=== PATIENT | male | born 1935 | race Caucasian/White ===

== ENCOUNTER 2021-11-14 04:25 | Inpatient (IN) | payer MEDICARE, OTHER ==
[2021-11-14 05:02] LABS: #Basophils 0.1 thou/uL (0.0-0.2); #Eosinphils 0.2 thou/uL (0.0-0.7); #Monocytes 0.9 thou/uL (0.11-0.59); #Neutrophils 6.6 thou/uL (1.40-6.50); %Basophils 0.7 % (0.0-1.0); %Eosinophils 2.6 % (0.0-10.0); %Monocytes 9.1 % (0.0-10.0); %Neutrophils 67.7 % (42.0-75.0); Hemoglobin 11.6 g/dL (14.0-18.0); Mean Corpuscular HGB CONC 33.5 g/dL (32.0-36.0); Mean Corpuscular Hemoglobin 34.4 pg (27.0-31.0); Mean Platelet Volume 7.8 fL (7.4-10.4); Platelet Count 223 thou/uL (130-400); RBC Distribution Width 11.3 % (11.5-14.5); Red Blood Cell (RBC) Count 3.38 mill/uL (4.70-6.10); White Blood Cell (WBC) Count 9.7 thou/uL (4.8-10.8)
[2021-11-14] MEDS ORDERED: Clindamycin/D5W 600 mg/50 ml Premix Bag ONE (06:50)
[2021-11-14] MEDS ORDERED: Silver Nitrate Application 1 EACH ONE (07:05)
[2021-11-14 07:22] LABS: ALT (SGPT) 15 U/L (8-55); AST (SGOT) 22 U/L (5-34); Albumin 3.9 g/dL (3.4-4.8); Alkaline Phosphatase 51 U/L (40-110); Anion Gap 13 mmol/L (10-20); BUN (Urea Nitrogen) 21 mg/dL (8.4-25.7); Bilirubin, Total 0.7 mg/dL (0.2-1.2); Calc. Creatinine Clearance 0 mL/min (70-130); Calcium 8.7 mg/dL (7.8-10.44); Carbon Dioxide 25 mmol/L (23-31); Chloride 103 mmol/L (98-107); Globulin 3.2 g/dL (2.4-3.5); Glucose 132 mg/dL (83-110); Potassium 3.3 mmol/L (3.5-5.1); Protein, Total 7.1 g/dL (5.8-8.1); Sodium 138 mmol/L (136-145)
[2021-11-14] MEDS ORDERED: Insulin Regular 300 UNITS/3 ML VIAL SC PRN ×2 (08:30)
[2021-11-14] MEDS ORDERED: Dextrose 50% Abboject 50 ML SYRINGE SLOW IVP PRN (08:30)
[2021-11-14] MEDS ORDERED: HYDROcodone/Acetaminophen 5/325 mg Tablet PO PRN (08:30)
[2021-11-14] MEDS ORDERED: Ondansetron ODT 4 MG TAB PO PRN (08:30)
[2021-11-14] MEDS ORDERED: Dextrose 5% in Water 1,000 ML IV PRN (08:30)
[2021-11-14] MEDS ORDERED: Iopamidol 370 76% 100 ML VIAL ONE (08:41)
[2021-11-14] MEDS ORDERED: VANC/ABX IVPB PRN (09:01)
[2021-11-14] MEDS ORDERED: cefTRIAXone\\ROCEPHIN 1 GM in Sodium Chloride 0.9% 100 ML IVPB SCH (09:15)
[2021-11-14] MEDS ORDERED: Potassium Chloride 20 MEQ TAB PO SCH (09:45)
[2021-11-14 10:11] VITALS: BMI 25.2
[2021-11-14] MEDS: Vancomycin 1.5 GRAM/300 ML BAG 1.5 GM in Premix Bag 1 BAG IVPB SCH (13:06)
[2021-11-14] MEDS: Acetaminophen 325 MG TAB PO PRN (13:07)
[2021-11-14] MEDS ORDERED: Menthol/Camphor Lotion 222 ml Bottle TOP PRN (15:14)
[2021-11-14] MEDS ORDERED: Methyl Salicylate/Menthol 85 GM TUBE TOP PRN (16:57)
[2021-11-15 05:38] LABS: #Basophils 0.1 thou/uL (0.0-0.2); #Eosinphils 0.2 thou/uL (0.0-0.7); #Lymphocytes 1.5 thou/uL (1.20-3.40); #Monocytes 0.6 thou/uL (0.11-0.59); #Neutrophils 5.8 thou/uL (1.40-6.50); %Basophils 0.7 % (0.0-1.0); %Eosinophils 2.8 % (0.0-10.0); %Lymphocytes 18.1 % (21.0-51.0); %Monocytes 6.8 % (0.0-10.0); %Neutrophils 71.6 % (42.0-75.0); Hemoglobin 10.5 g/dL (14.0-18.0); Mean Corpuscular HGB CONC 33.9 g/dL (32.0-36.0); Mean Corpuscular Hemoglobin 34.9 pg (27.0-31.0); Mean Platelet Volume 8.1 fL (7.4-10.4); Platelet Count 196 thou/uL (130-400); RBC Distribution Width 11.3 % (11.5-14.5); Red Blood Cell (RBC) Count 3.01 mill/uL (4.70-6.10); White Blood Cell (WBC) Count 8.1 thou/uL (4.8-10.8)
[2021-11-15 06:05] LABS: Anion Gap 11 mmol/L (10-20); BUN (Urea Nitrogen) 17 mg/dL (8.4-25.7); Calc. Creatinine Clearance 98 mL/min (70-130); Calcium 8.3 mg/dL (7.8-10.44); Carbon Dioxide 23 mmol/L (23-31); Chloride 108 mmol/L (98-107); Glucose 147 mg/dL (83-110); Potassium 3.5 mmol/L (3.5-5.1); Sodium 138 mmol/L (136-145)
[2021-11-15] MEDS ORDERED: Cepastat Lozenges 1 LOZ PO PRN (08:25)
[2021-11-15] MEDS ORDERED: GUAIFENESIN SF SOLN 200 MG/10 ML UDCUP PO PRN (08:25)
[2021-11-15] MEDS ORDERED: hydrALAZINE 20 MG/ML VIAL SLOW IVP PRN (08:25)
[2021-11-15] MEDS ORDERED: Moisturizing Cream (Eucerin) 113 GM JAR TOP PRN (08:25)
[2021-11-15] MEDS ORDERED: Ondansetron PF 4 MG/2 ML Vial IVP PRN (08:25)
[2021-11-15] MEDS ORDERED: Senokot S 8.6-50 MG TAB PO PRN (08:25)
[2021-11-15] MEDS ORDERED: Loperamide HCl 2 MG CAP PO PRN (08:25)
[2021-11-15] MEDS ORDERED: Calcium Carbonate 500 MG ChewTAB PO PRN (08:25)
[2021-11-15] MEDS ORDERED: Sodium Chloride 0.65% Nasal 44 ML BOT EA NARE PRN (08:25)
[2021-11-15] MEDS ORDERED: Artificial Tear Sol 15 ML BOT EA EYE PRN (08:25)
[2021-11-15] MEDS ORDERED: ALPRAZolam 0.25 MG TAB PO PRN (11:02)
[2021-11-15] MEDS: Vancomycin 1.5 GRAM/300 ML BAG 1.5 GM in Premix Bag 1 BAG IVPB SCH (12:14)
[2021-11-15] MEDS: Folic Acid 1 MG TAB PO SCH (12:15)
[2021-11-15] MEDS: Cyanocobalamin (Vitamin B-12) 1,000 MCG TAB PO SCH (12:15)
[2021-11-15] MEDS: Acetaminophen 325 MG TAB PO PRN (15:05)
[2021-11-15] MEDS: Glimepiride 1 MG TAB PO SCH (18:03)
[2021-11-15] MEDS: diphenhydrAMINE 25 MG CAP PO PRN (20:21)
[2021-11-16] MEDS: Cyanocobalamin (Vitamin B-12) 1,000 MCG TAB PO SCH (08:05)
[2021-11-16] MEDS: Folic Acid 1 MG TAB PO SCH (08:05)
[2021-11-16] MEDS: diphenhydrAMINE 25 MG CAP PO PRN ×2 (08:05→20:30)
[2021-11-16] MEDS: Glimepiride 1 MG TAB PO SCH ×2 (08:05→17:36)
[2021-11-16] MEDS: Acetaminophen 325 MG TAB PO PRN (10:42)
[2021-11-16 11:35] LABS: Vancomycin, Trough 6.8 ug/mL
[2021-11-16] MEDS: Vancomycin 1.5 GRAM/300 ML BAG 1.5 GM in Premix Bag 1 BAG IVPB SCH (14:18)
[2021-11-16] MEDS: VANCOMYCIN 1.25 GM/250 ML BAG 1.25 GM in Premix Bag 1 BAG IVPB SCH (14:25)
[2021-11-16] MEDS ORDERED: Nitroglycerin 0.4 MG TAB (25 Tab Bottle) ONE (20:50)
[2021-11-16] MEDS ORDERED: Nitroglycerin 0.4 MG TAB (25 Tab Bottle) SL PRN (20:53)
[2021-11-16 21:44] LABS: Troponin I 0.016 ng/mL (< 0.028)
[2021-11-17] MEDS: VANCOMYCIN 1.25 GM/250 ML BAG 1.25 GM in Premix Bag 1 BAG IVPB SCH (03:08)
[2021-11-17] MEDS: Acetaminophen 325 MG TAB PO PRN ×3 (03:09→14:03)
[2021-11-17 06:07] LABS: #Eosinphils 0.4 thou/uL (0.0-0.7); #Lymphocytes 1.9 thou/uL (1.20-3.40); #Monocytes 0.7 thou/uL (0.11-0.59); #Neutrophils 6.9 thou/uL (1.40-6.50); %Basophils 0.4 % (0.0-1.0); %Eosinophils 4.4 % (0.0-10.0); %Lymphocytes 18.8 % (21.0-51.0); %Neutrophils 69.3 % (42.0-75.0); Hemoglobin 10.4 g/dL (14.0-18.0); Mean Corpuscular Hemoglobin 34.6 pg (27.0-31.0); Mean Platelet Volume 7.9 fL (7.4-10.4); Platelet Count 236 thou/uL (130-400); RBC Distribution Width 11.3 % (11.5-14.5); Red Blood Cell (RBC) Count 3.02 mill/uL (4.70-6.10)
[2021-11-17] MEDS: diphenhydrAMINE 25 MG CAP PO PRN (06:20)
[2021-11-17 06:34] LABS: ALT (SGPT) 22 U/L (8-55); AST (SGOT) 25 U/L (5-34); Albumin 3.8 g/dL (3.4-4.8); Alkaline Phosphatase 50 U/L (40-110); Anion Gap 9 mmol/L (10-20); BUN (Urea Nitrogen) 10 mg/dL (8.4-25.7); Bilirubin, Total 0.4 mg/dL (0.2-1.2); Calc. Creatinine Clearance 89 mL/min (70-130); Calcium 8.7 mg/dL (7.8-10.44); Carbon Dioxide 25 mmol/L (23-31); Chloride 105 mmol/L (98-107); Globulin 3.2 g/dL (2.4-3.5); Glucose 140 mg/dL (83-110); Magnesium 1.9 mg/dL (1.6-2.6); Potassium 3.4 mmol/L (3.5-5.1); Sodium 136 mmol/L (136-145)
[2021-11-17] MEDS: Cyanocobalamin (Vitamin B-12) 1,000 MCG TAB PO SCH (08:52)
[2021-11-17] MEDS: Glimepiride 1 MG TAB PO SCH (08:52)
[2021-11-17] MEDS: Folic Acid 1 MG TAB PO SCH (08:52)
[2021-11-17 08:53] VITALS: BP 143/83; TEMP 97.4
[2021-11-17] MEDS ORDERED: Potassium Chloride 20 MEQ TAB PO SCH (09:30)
== END 2021-11-17 15:43 | disposition home or self-care (01) | DRG 603 ==
LOC: ERS 04:25 → MSONC 07:42
PROVIDERS: ADMIT Internal Medicine; ATTEND Internal Medicine
DX: L03.113 Cellulitis of right upper limb (principal); Z20.822 Contact with and (suspected) exposure to COVID-19; I10 Essential (primary) hypertension; E78.5 Hyperlipidemia, unspecified; I25.10 Atherosclerotic heart disease of native coronary artery without angina pectoris; E87.6 Hypokalemia; D53.9 Nutritional anemia, unspecified; F41.1 Generalized anxiety disorder; S01.301A Unspecified open wound of right ear, initial encounter; Z88.0 Allergy status to penicillin; Z79.84 Long term (current) use of oral hypoglycemic drugs; Z79.899 Other long term (current) drug therapy; Z79.52 Long term (current) use of systemic steroids
CPT/HCPCS: 36415; 36416; 70450; 80048; 80053; 80202; 82607; 82746; 83605; 83735; 84484; 85025; 87040; 93005; 93010; 96365; J1815; J3370; J3490; Q9967; U0003; U0005

== ENCOUNTER 2021-11-20 01:29 | Inpatient (IN) | payer MEDICARE ==
[2021-11-20 02:24] LABS: #Lymphocytes 1.3 thou/uL (1.20-3.40); #Monocytes 0.5 thou/uL (0.11-0.59); #Neutrophils 6.2 thou/uL (1.40-6.50); %Basophils 0.5 % (0.0-1.0); %Eosinophils 0.5 % (0.0-10.0); %Lymphocytes 15.8 % (21.0-51.0); %Monocytes 5.7 % (0.0-10.0); %Neutrophils 77.6 % (42.0-75.0); Mean Corpuscular HGB CONC 34.2 g/dL (32.0-36.0); Mean Corpuscular Hemoglobin 35.1 pg (27.0-31.0); Mean Platelet Volume 7.8 fL (7.4-10.4); Platelet Count 281 thou/uL (130-400); RBC Distribution Width 11.8 % (11.5-14.5); Red Blood Cell (RBC) Count 2.86 mill/uL (4.70-6.10)
[2021-11-20] MEDS ORDERED: Morphine 2 MG/ML VIAL ONE ×2 (02:35→04:13)
[2021-11-20 02:46] LABS: ALT (SGPT) 20 U/L (8-55); AST (SGOT) 25 U/L (5-34); Albumin 4.1 g/dL (3.4-4.8); Alkaline Phosphatase 59 U/L (40-110); Anion Gap 16 mmol/L (10-20); BUN (Urea Nitrogen) 14 mg/dL (8.4-25.7); Bilirubin, Total 0.3 mg/dL (0.2-1.2); Calc. Creatinine Clearance 0 mL/min (70-130); Calcium 9.1 mg/dL (7.8-10.44); Carbon Dioxide 20 mmol/L (23-31); Chloride 103 mmol/L (98-107); Globulin 3.1 g/dL (2.4-3.5); Glucose 229 mg/dL (83-110); Potassium 4.2 mmol/L (3.5-5.1); Protein, Total 7.2 g/dL (5.8-8.1); Sodium 135 mmol/L (136-145)
[2021-11-20 03:37] LABS: CKMB 8.1 ng/mL (0-6.6)
[2021-11-20] MEDS ORDERED: Enoxaparin Sodium 30 MG/0.3 ML SYRINGE ONE (04:13)
[2021-11-20] MEDS ORDERED: Enoxaparin Sodium 60 MG/0.6 ML SYRINGE ONE (04:13)
[2021-11-20] MEDS ORDERED: Aspirin Chewable 81 MG TAB ONE ×2 (04:37→04:38)
[2021-11-20 06:18] VITALS: BMI 26.6
[2021-11-20] MEDS ORDERED: Ondansetron ODT 4 MG TAB PO PRN (09:20)
[2021-11-20] MEDS ORDERED: Ondansetron PF 4 MG/2 ML Vial IVP PRN (09:20)
[2021-11-20] MEDS ORDERED: Acetaminophen 650 MG Suppository PR PRN (09:20)
[2021-11-20] MEDS ORDERED: Nitroglycerin 0.4 MG TAB (25 Tab Bottle) SL PRN ×2 (09:22→13:08)
[2021-11-20] MEDS ORDERED: Morphine 2 MG/ML VIAL SLOW IVP PRN (09:22)
[2021-11-20] MEDS ORDERED: Metoprolol Tartrate 5 MG/5 ML VIAL IVP PRN (09:25)
[2021-11-20] MEDS ORDERED: Dextrose 50% Abboject 50 ML SYRINGE SLOW IVP PRN (09:27)
[2021-11-20] MEDS ORDERED: HumaLOG 300 UNITS/3 ML VIAL SC PRN (09:27)
[2021-11-20] MEDS ORDERED: Dextrose 5% in Water 1,000 ML IV PRN (09:27)
[2021-11-20] MEDS ORDERED: Electrolyte Replacement Protocol 1 EACH FS SCH (09:30)
[2021-11-20 09:39] LABS: Troponin I 11.611 ng/mL (< 0.028)
[2021-11-20] MEDS ORDERED: Iopamidol 370 76% 100 ML VIAL ONE (10:04)
[2021-11-20] MEDS ORDERED: Iopamidol 370 76% 50 ML VIAL FS ONE (10:04)
[2021-11-20 10:08] LABS: Magnesium 1.8 mg/dL (1.6-2.6)
[2021-11-20] MEDS ORDERED: Magnesium 2 GM/50 ML(in water) 2 GM in Premix Bag 1 BAG IVPB SCH (11:00)
[2021-11-20] MEDS ORDERED: Lidocaine 1% (PF) 30 ML VIAL ONE (11:30)
[2021-11-20 12:24] LABS: Troponin I 18.827 ng/mL (< 0.028)
[2021-11-20] MEDS ORDERED: Midazolam HCl 2 mg/2 ml Vial ONE (12:35)
[2021-11-20] MEDS ORDERED: Sodium Chloride 0.9% 200 ML IV PRN (13:08)
[2021-11-20] MEDS ORDERED: Acetaminophen/Codeine 30-300mg Tablet PO PRN ×2 (13:08)
[2021-11-20] MEDS: Nitroglycerin 2% Ointment 1 INCH/1 GM Packet TOP SCH ×2 (13:59→21:43)
[2021-11-20] MEDS: Sodium Chloride 0.9% 1,000 ML IV SCH ×2 (14:00→22:35)
[2021-11-20 14:09] LABS: Bilirubin Negative (Negative); Blood, Urine 3+ (Negative); Clarity Clear (Clear); Glucose, Urine (Dipstick) Normal (Negative); Ketone, Urine Negative (Negative); Leukocyte Negative Leu/uL (Negative); Nitrite Negative (Negative); Protein, Urine (Dipstick) Negative (Neg-Trace); Specific Gravity, Urine 1.028 (1.002-1.036); Squamous Epithelial 0-3 HPF (0-3); Urobilinogen Normal mg/dL (Less than 2)
[2021-11-20 14:20] LABS: Bacteria/HPF 1+ HPF (None Seen); RBC/HPF 21-50 HPF (0-3)
[2021-11-20 14:22] LABS: Urine Culture Reflex Yes Yes
[2021-11-20] MEDS ORDERED: Enoxaparin Sodium 80 MG/0.8 ML SYRINGE SC SCH (21:00)
[2021-11-20] MEDS ORDERED: ZYTIGA PO SCH (21:00)
[2021-11-20] MEDS: Atorvastatin Calcium 40 MG TAB PO SCH (21:43)
[2021-11-20] MEDS: Sulfameth/Trimethoprim SS 400-80MG TAB PO SCH (21:43)
[2021-11-20] MEDS: Enoxaparin Sodium 100 MG/ML SYRINGE SC SCH (21:43)
[2021-11-20] MEDS: predniSONE 5 MG TAB PO SCH (21:43)
[2021-11-20] MEDS: Acetaminophen 325 MG TAB PO PRN (21:48)
[2021-11-21] MEDS: Nitroglycerin 2% Ointment 1 INCH/1 GM Packet TOP SCH ×3 (05:42→21:29)
[2021-11-21] MEDS: Cyanocobalamin (Vitamin B-12) 1,000 MCG TAB PO SCH (08:38)
[2021-11-21] MEDS: Enoxaparin Sodium 100 MG/ML SYRINGE SC SCH ×2 (08:40→21:21)
[2021-11-21] MEDS: Folic Acid 1 MG TAB PO SCH (08:40)
[2021-11-21] MEDS: Aspirin Chewable 81 MG TAB PO SCH (08:40)
[2021-11-21] MEDS: Sulfameth/Trimethoprim SS 400-80MG TAB PO SCH ×2 (08:45→21:30)
[2021-11-21] MEDS: predniSONE 5 MG TAB PO SCH ×2 (08:45→21:31)
[2021-11-21] MEDS ORDERED: Clopidogrel Bisulfate 75 MG TAB PO SCH (10:15)
[2021-11-21] MEDS: Acetaminophen 325 MG TAB PO PRN (12:05)
[2021-11-21] MEDS: HumaLOG 300 UNITS/3 ML VIAL SC PRN (12:35)
[2021-11-21] MEDS: ZYTIGA PO SCH (21:29)
[2021-11-21] MEDS: Atorvastatin Calcium 40 MG TAB PO SCH (21:31)
[2021-11-22] MEDS: Nitroglycerin 2% Ointment 1 INCH/1 GM Packet TOP SCH ×2 (05:36→15:15)
[2021-11-22] MEDS: HumaLOG 300 UNITS/3 ML VIAL SC PRN (05:44)
[2021-11-22 06:00] LABS: #Eosinphils 0.1 thou/uL (0.0-0.7); #Monocytes 0.5 thou/uL (0.11-0.59); #Neutrophils 4.3 thou/uL (1.40-6.50); %Basophils 0.8 % (0.0-1.0); %Eosinophils 1.3 % (0.0-10.0); %Lymphocytes 17.1 % (21.0-51.0); %Monocytes 7.6 % (0.0-10.0); %Neutrophils 73.3 % (42.0-75.0); Hemoglobin 9.5 g/dL (14.0-18.0); Mean Corpuscular HGB CONC 34.7 g/dL (32.0-36.0); Mean Corpuscular Hemoglobin 35.2 pg (27.0-31.0); Mean Platelet Volume 7.8 fL (7.4-10.4); Platelet Count 278 thou/uL (130-400); RBC Distribution Width 11.8 % (11.5-14.5); Red Blood Cell (RBC) Count 2.68 mill/uL (4.70-6.10); White Blood Cell (WBC) Count 5.9 thou/uL (4.8-10.8)
[2021-11-22 06:21] LABS: Anion Gap 12 mmol/L (10-20); BUN (Urea Nitrogen) 6 mg/dL (8.4-25.7); Calc. Creatinine Clearance 94 mL/min (70-130); Calcium 8.3 mg/dL (7.8-10.44); Carbon Dioxide 23 mmol/L (23-31); Chloride 106 mmol/L (98-107); Glucose 162 mg/dL (83-110); Potassium 3.7 mmol/L (3.5-5.1); Sodium 137 mmol/L (136-145)
[2021-11-22] MEDS: Acetaminophen 325 MG TAB PO PRN (08:19)
[2021-11-22] MEDS: Aspirin Chewable 81 MG TAB PO SCH (08:20)
[2021-11-22] MEDS: Cyanocobalamin (Vitamin B-12) 1,000 MCG TAB PO SCH (08:21)
[2021-11-22] MEDS: Folic Acid 1 MG TAB PO SCH (08:23)
[2021-11-22] MEDS: Sulfameth/Trimethoprim SS 400-80MG TAB PO SCH ×2 (08:23→21:11)
[2021-11-22] MEDS: Clopidogrel Bisulfate 75 MG TAB PO SCH (08:23)
[2021-11-22] MEDS: ZYTIGA PO SCH ×2 (08:24→21:11)
[2021-11-22] MEDS: predniSONE 5 MG TAB PO SCH ×2 (09:08→21:11)
[2021-11-22] MEDS: Fluticasone Propionate Nasal Spray 16 gm Bottle NASAL SCH (09:08)
[2021-11-22] MEDS: Enoxaparin Sodium 100 MG/ML SYRINGE SC SCH (11:21)
[2021-11-22] MEDS ORDERED: Tamsulosin HCl 0.4 MG CAP PO SCH (21:00)
[2021-11-22] MEDS: Atorvastatin Calcium 40 MG TAB PO SCH ×2 (21:11→21:13)
[2021-11-23 05:48] LABS: #Basophils 0.1 thou/uL (0.0-0.2); #Eosinphils 0.1 thou/uL (0.0-0.7); #Lymphocytes 1.4 thou/uL (1.20-3.40); #Monocytes 0.7 thou/uL (0.11-0.59); %Basophils 0.7 % (0.0-1.0); %Eosinophils 0.8 % (0.0-10.0); %Monocytes 9.4 % (0.0-10.0); %Neutrophils 70.1 % (42.0-75.0); Hemoglobin 9.5 g/dL (14.0-18.0); Mean Corpuscular HGB CONC 33.3 g/dL (32.0-36.0); Mean Corpuscular Hemoglobin 34.1 pg (27.0-31.0); Mean Platelet Volume 7.8 fL (7.4-10.4); Platelet Count 293 thou/uL (130-400); White Blood Cell (WBC) Count 7.1 thou/uL (4.8-10.8)
[2021-11-23 06:11] LABS: Anion Gap 12 mmol/L (10-20); BUN (Urea Nitrogen) 8 mg/dL (8.4-25.7); Calc. Creatinine Clearance 94 mL/min (70-130); Calcium 8.5 mg/dL (7.8-10.44); Carbon Dioxide 24 mmol/L (23-31); Chloride 105 mmol/L (98-107); Glucose 165 mg/dL (83-110); Potassium 3.7 mmol/L (3.5-5.1); Sodium 137 mmol/L (136-145)
[2021-11-23] MEDS: HumaLOG 300 UNITS/3 ML VIAL SC PRN ×2 (06:28→11:35)
[2021-11-23] MEDS: ZYTIGA PO SCH (09:03)
[2021-11-23] MEDS: Cyanocobalamin (Vitamin B-12) 1,000 MCG TAB PO SCH (09:03)
[2021-11-23] MEDS: Fluticasone Propionate Nasal Spray 16 gm Bottle NASAL SCH (09:04)
[2021-11-23] MEDS: Folic Acid 1 MG TAB PO SCH (09:04)
[2021-11-23] MEDS: Clopidogrel Bisulfate 75 MG TAB PO SCH (09:05)
[2021-11-23] MEDS: Aspirin Chewable 81 MG TAB PO SCH (09:05)
[2021-11-23] MEDS: predniSONE 5 MG TAB PO SCH (11:35)
[2021-11-23 11:57] VITALS: TEMP 97.5
[2021-11-23 16:01] VITALS: BP 105/60
== END 2021-11-23 18:49 | disposition home health service (06) | DRG 281 ==
LOC: ERS 01:29 → NEURO 04:11 → OBSVTOIN 10:21
PROVIDERS: ADMIT Internal Medicine; ATTEND Internal Medicine
DX: I21.4 Non-ST elevation (NSTEMI) myocardial infarction (principal); C79.51 Secondary malignant neoplasm of bone; L03.113 Cellulitis of right upper limb; N39.0 Urinary tract infection, site not specified; Z20.822 Contact with and (suspected) exposure to COVID-19; R29.6 Repeated falls; I10 Essential (primary) hypertension; C61 Malignant neoplasm of prostate; I25.110 Atherosclerotic heart disease of native coronary artery with unstable angina pectoris; Z79.899 Other long term (current) drug therapy; Z88.0 Allergy status to penicillin
CPT/HCPCS: 36415; 36416; 51702; 71045; 80048; 80053; 81001; 82553; 83735; 84484; 85025; 87086; 93005; 93010; 93306; 93459; 93567; 94760; 96372; 96374; 96376; 99152; 99153; G0378; J1650; J1815; J2001; J2250; J2270; J3475; J7050; J7512; Q9967; U0003; U0005

== ENCOUNTER 2022-01-10 18:59 | Inpatient (IN) | payer MEDICARE ==
[~2022-01-10 18:59] MED LIST: Iopamidol-370 76% 500 ML 1 ML ONE
[2022-01-10 19:56] LABS: ALT (SGPT) 12 U/L (8-55); AST (SGOT) 15 U/L (5-34); Albumin 3.7 g/dL (3.4-4.8); Alkaline Phosphatase 58 U/L (40-110); Anion Gap 16 mmol/L (10-20); BUN (Urea Nitrogen) 17 mg/dL (8.4-25.7); Bilirubin, Total 0.4 mg/dL (0.2-1.2); Calc. Creatinine Clearance 0 mL/min (70-130); Calcium 8.4 mg/dL (7.8-10.44); Carbon Dioxide 20 mmol/L (23-31); Chloride 103 mmol/L (98-107); Estimated GFR 60; Globulin 3.2 g/dL (2.4-3.5); Glucose 218 mg/dL (83-110); Lipase 14 U/L (8-78); Potassium 3.9 mmol/L (3.5-5.1); Protein, Total 6.9 g/dL (5.8-8.1); Sodium 135 mmol/L (136-145)
[2022-01-10 20:02] LABS: White Blood Cell (WBC) Count 8.3 thou/uL (4.8-10.8)
[2022-01-10 20:03] LABS: %Basophils 0.6 % (0.0-1.0); %Eosinophils 1.7 % (0.0-10.0); %Lymphocytes 6.3 % (21.0-51.0); %Monocytes 4.5 % (0.0-10.0); Hemoglobin 11.6 g/dL (14.0-18.0); Mean Corpuscular HGB CONC 33.1 g/dL (32.0-36.0); Mean Corpuscular Hemoglobin 33.8 pg (27.0-31.0); Mean Platelet Volume 7.9 fL (7.4-10.4); Platelet Count 153 thou/uL (130-400); RBC Distribution Width 11.9 % (11.5-14.5); Red Blood Cell (RBC) Count 3.42 mill/uL (4.70-6.10)
[2022-01-10] MEDS ORDERED: Haloperidol Lactate 5 MG/ML VIAL ONE (22:17)
[2022-01-10] MEDS ORDERED: VANCOMYCIN 1.75 GM/500 ML BAG 1.75 GM in Premix Bag 1 BAG IVPB SCH (23:30)
[2022-01-10 23:42] LABS: Bacteria/HPF 1+ HPF (None Seen); Bilirubin Negative (Negative); Blood, Urine Negative (Negative); Clarity Clear (Clear); Glucose, Urine (Dipstick) 300 mg/dL (Negative); Ketone, Urine 10 mg/dL (Negative); Leukocyte 500 Leu/uL (Negative); Nitrite Negative (Negative); Protein, Urine (Dipstick) 10 mg/dL (Neg-Trace); RBC/HPF 0-3 HPF (0-3); Specific Gravity, Urine 1.022 (1.002-1.036); Squamous Epithelial 0-3 HPF (0-3); Urobilinogen Normal mg/dL (Less than 2); pH, Urine 5.5 (5.0-9.0)
[2022-01-10] MEDS ORDERED: Acetaminophen 650 MG Suppository ONE (23:49)
[2022-01-10] MEDS ORDERED: Cefepime 2 GM VIAL ONE (23:49)
[2022-01-10 23:57] LABS: CKMB 12.2 ng/mL (0-6.6)
[2022-01-11] MEDS ORDERED: Rocuronium Bromide 10 MG/ML (10ML VIAL) ONE ×2 (00:12→00:15)
[2022-01-11] MEDS ORDERED: Ketamine 50 MG/ML (10ML VIAL) ONE (00:12)
[2022-01-11] MEDS ORDERED: Heparin 25,000 units/D5W 500 ML ONE ×2 (00:26→02:51)
[2022-01-11] MEDS ORDERED: Heparin 10,000 UNITS/ 10 ML VIAL ONE (00:26)
[2022-01-11] MEDS ORDERED: Acetaminophen 650 MG Suppository ONE (00:44)
[2022-01-11] MEDS ORDERED: Acetaminophen 650 MG Suppository PR PRN (01:35)
[2022-01-11] MEDS ORDERED: Nitroglycerin 0.4 MG TAB (25 Tab Bottle) SL PRN (01:35)
[2022-01-11] MEDS ORDERED: Ondansetron ODT 4 MG TAB PO PRN (01:35)
[2022-01-11] MEDS ORDERED: Ondansetron PF 4 MG/2 ML Vial IVP PRN (01:35)
[2022-01-11] MEDS ORDERED: Aspirin 300 MG Suppository PR SCH ×2 (02:00→09:00)
[2022-01-11] MEDS ORDERED: Sodium Chloride 0.9% 1,000 ML IV SCH (02:00)
[2022-01-11 02:10] LABS: Lactic Acid 2.5 mmol/L (0.5-2.2)
[2022-01-11] MEDS ORDERED: Aspirin 300 MG Suppository ONE (02:39)
[2022-01-11] MEDS ORDERED: Furosemide 40 MG/4 ML VIAL SLOW IVP SCH (07:15)
[2022-01-11] MEDS: Aspirin 325 MG TAB PO SCH (09:04)
[2022-01-11 09:32] LABS: SARS-CoV-2 NAA Rapid Test DETECTED (NotDetected)
[2022-01-11 09:54] VITALS: BMI 26.9
[2022-01-11] MEDS ORDERED: Dexamethasone 6 MG in Sodium Chloride 0.9% 50 ML IVPB SCH (10:14)
[2022-01-11] MEDS ORDERED: HYDROcodone/Acetaminophen 10/325 mg Tablet PO PRN (10:29)
[2022-01-11] MEDS ORDERED: ALPRAZolam 0.25 MG TAB PO PRN (10:29)
[2022-01-11] MEDS ORDERED: Dexamethasone 4 mg/ml Vial SLOW IVP SCH (10:30)
[2022-01-11] MEDS ORDERED: HumaLOG 300 UNITS/3 ML VIAL SC PRN (10:34)
[2022-01-11] MEDS ORDERED: Dextrose 50% Abboject 50 ML SYRINGE SLOW IVP PRN (10:34)
[2022-01-11] MEDS ORDERED: Dextrose 5% in Water 1,000 ML IV PRN (10:34)
[2022-01-11] MEDS ORDERED: REMDESIVIR 200 MG in Sodium Chloride 0.9% 250 ML 210 ML IV SCH (11:00)
[2022-01-11] MEDS ORDERED: Ipratropium/Albuterol Sulfate 4 GM AER IH PRN (11:15)
[2022-01-11] MEDS: HumaLOG 300 UNITS/3 ML VIAL SC PRN ×2 (11:24→17:01)
[2022-01-11] MEDS: Cefepime 2 GM in Sodium Chloride 0.9% 100 ML IVPB SCH (12:11)
[2022-01-11 16:09] LABS: ALV-art Gradient 217.125 mmHg (0-20); Actual Bicarbonate (HCO3a) 17.6 mEq/L (22-28); Base Excess (BEa) -5.5 mEq/L (-2.0 to +3.0); CO2 Tension 27.5 mmHg (35.0-45.0); Calcium, Ionized (arterial) 1.09 mmol/L (1.12-1.30); Carboxyhemoglobin (COHb) 0.3 gm% (0.0-3.0); Hemoglobin (Hb) 12.1 g/dL (14.0-18.0); Potassium - ABG Lab 3.28 mmol/L (3.70-5.30); Puncture Site RRA; pH, Arterial 7.42 (7.35-7.45)
[2022-01-11] MEDS: Ipratropium/Albuterol Sulfate 4 GM AER IH SCH ×2 (16:10→19:57)
[2022-01-11 16:28] LABS: #Lymphocytes 0.5 thou/uL (1.20-3.40); #Monocytes 0.3 thou/uL (0.11-0.59); #Neutrophils 9.2 thou/uL (1.40-6.50); %Basophils 0.2 % (0.0-1.0); %Eosinophils 0.1 % (0.0-10.0); %Lymphocytes 4.8 % (21.0-51.0); %Monocytes 2.8 % (0.0-10.0); %Neutrophils 92.1 % (42.0-75.0); Hemoglobin 11.9 g/dL (14.0-18.0); Mean Corpuscular HGB CONC 32.9 g/dL (32.0-36.0); Mean Corpuscular Hemoglobin 33.5 pg (27.0-31.0); Mean Platelet Volume 8.5 fL (7.4-10.4); Platelet Count 134 thou/uL (130-400); Red Blood Cell (RBC) Count 3.55 mill/uL (4.70-6.10)
[2022-01-11] MEDS: Scopolamine 1.5 mg/72 hour Patch TD SCH (16:45)
[2022-01-11] MEDS: Sodium Chloride 0.9% 1,000 ML IV SCH ×2 (16:46→20:52)
[2022-01-11 16:47] LABS: Anion Gap 16 mmol/L (10-20); BUN (Urea Nitrogen) 16 mg/dL (8.4-25.7); Calc. Creatinine Clearance 87 mL/min (70-130); Carbon Dioxide 17 mmol/L (23-31); Chloride 106 mmol/L (98-107); Estimated GFR 86; Glucose 215 mg/dL (83-110); Potassium 3.4 mmol/L (3.5-5.1); Sodium 136 mmol/L (136-145)
[2022-01-11] MEDS: Glimepiride 1 MG TAB PO SCH (20:48)
[2022-01-11] MEDS: Atorvastatin Calcium 40 MG TAB PO SCH (20:48)
[2022-01-11] MEDS: Tamsulosin HCl 0.4 MG CAP PO SCH (20:49)
[2022-01-11] MEDS: Vancomycin 1.5 GRAM/300 ML BAG 1.5 GM in Premix Bag 1 BAG IVPB SCH (20:49)
[2022-01-11] MEDS ORDERED: Vancomycin 1.5 GRAM/300 ML BAG IVPB SCH (21:00)
[2022-01-12] MEDS: Cefepime 2 GM in Sodium Chloride 0.9% 100 ML IVPB SCH ×3 (00:15→23:37)
[2022-01-12] MEDS: Ipratropium/Albuterol Sulfate 4 GM AER IH SCH (01:06)
[2022-01-12] MEDS: Albuterol 200 PUFF (6.7GM INHALER) INH SCH ×6 (03:03→22:07)
[2022-01-12] MEDS: Ascorbic Acid 500 mg Chewable Tablet PO SCH (09:10)
[2022-01-12] MEDS: Aspirin 325 MG TAB PO SCH (09:11)
[2022-01-12] MEDS: Clopidogrel Bisulfate 75 MG TAB PO SCH (09:11)
[2022-01-12] MEDS: Cholecalciferol (Vitamin D3) 400 UNITS TAB PO SCH (09:11)
[2022-01-12] MEDS: Folic Acid 1 MG TAB PO SCH (09:11)
[2022-01-12] MEDS: Glimepiride 1 MG TAB PO SCH ×2 (09:11→21:11)
[2022-01-12] MEDS: Dexamethasone 4 mg/ml Vial SLOW IVP SCH (09:45)
[2022-01-12] MEDS: Enoxaparin Sodium 40 MG/0.4 ML SYRINGE SC SCH (09:50)
[2022-01-12] MEDS: REMDESIVIR 100 MG in Sodium Chloride 0.9% 250 ML 230 ML IV SCH (09:50)
[2022-01-12] MEDS: Fluticasone Propionate Nasal Spray 16 gm Bottle NASAL SCH (09:51)
[2022-01-12] MEDS: HumaLOG 300 UNITS/3 ML VIAL SC PRN (17:08)
[2022-01-12 20:49] LABS: Vancomycin, Trough 7.1 ug/mL
[2022-01-12] MEDS: Tamsulosin HCl 0.4 MG CAP PO SCH (21:11)
[2022-01-12] MEDS: Atorvastatin Calcium 40 MG TAB PO SCH (21:11)
[2022-01-12] MEDS: Vancomycin 1.5 GRAM/300 ML BAG 1.5 GM in Premix Bag 1 BAG IVPB SCH (21:41)
[2022-01-12] MEDS: Vancomycin 1 GM in Premix Bag 1 BAG IVPB SCH (22:06)
[2022-01-13] MEDS: Albuterol 200 PUFF (6.7GM INHALER) INH SCH ×6 (03:00→23:02)
[2022-01-13 05:37] LABS: Anion Gap 15 mmol/L (10-20); BUN (Urea Nitrogen) 14 mg/dL (8.4-25.7); Calc. Creatinine Clearance 99 mL/min (70-130); Carbon Dioxide 19 mmol/L (23-31); Chloride 107 mmol/L (98-107); Estimated GFR 90; Glucose 178 mg/dL (83-110); Sodium 138 mmol/L (136-145)
[2022-01-13 06:24] LABS: Potassium 2.7 mmol/L (3.5-5.1)
[2022-01-13] MEDS ORDERED: Electrolyte Replacement Protocol 1 EACH FS PRN (06:27)
[2022-01-13 06:58] LABS: Hemoglobin 10.7 g/dL (14.0-18.0); Mean Corpuscular HGB CONC 34.6 g/dL (32.0-36.0); Mean Corpuscular Hemoglobin 34.5 pg (27.0-31.0); Mean Corpuscular Volume 99.8 fL (78.0-98.0); Mean Platelet Volume 9.2 fL (7.4-10.4); Platelet Count 139 thou/uL (130-400); RBC Distribution Width 11.9 % (11.5-14.5); Red Blood Cell (RBC) Count 3.11 mill/uL (4.70-6.10); White Blood Cell (WBC) Count 6.4 thou/uL (4.8-10.8)
[2022-01-13] MEDS: Potassium Chloride 20 MEQ in Premix Bag 1 BAG IVPB SCH ×4 (07:13→17:19)
[2022-01-13] MEDS ORDERED: Magnesium 2 GM/50 ML(in water) 2 GM in Premix Bag 1 BAG IVPB SCH (08:30)
[2022-01-13] MEDS: Clopidogrel Bisulfate 75 MG TAB PO SCH (10:00)
[2022-01-13] MEDS: Folic Acid 1 MG TAB PO SCH (10:00)
[2022-01-13] MEDS: REMDESIVIR 100 MG in Sodium Chloride 0.9% 250 ML 230 ML IV SCH (10:00)
[2022-01-13] MEDS: Glimepiride 1 MG TAB PO SCH ×2 (10:00→21:05)
[2022-01-13] MEDS: Ascorbic Acid 500 mg Chewable Tablet PO SCH (10:01)
[2022-01-13] MEDS: Aspirin 325 MG TAB PO SCH (10:01)
[2022-01-13] MEDS: Cholecalciferol (Vitamin D3) 400 UNITS TAB PO SCH (10:01)
[2022-01-13] MEDS: Fluticasone Propionate Nasal Spray 16 gm Bottle NASAL SCH (10:02)
[2022-01-13] MEDS: Dexamethasone 4 mg/ml Vial SLOW IVP SCH (10:02)
[2022-01-13] MEDS: Vancomycin 1 GM in Premix Bag 1 BAG IVPB SCH ×2 (12:13→21:04)
[2022-01-13] MEDS: Enoxaparin Sodium 40 MG/0.4 ML SYRINGE SC SCH (12:13)
[2022-01-13] MEDS: HumaLOG 300 UNITS/3 ML VIAL SC PRN ×2 (12:14→17:39)
[2022-01-13] MEDS: Cefepime 2 GM in Sodium Chloride 0.9% 100 ML IVPB SCH ×2 (13:38→23:53)
[2022-01-13] MEDS: Tamsulosin HCl 0.4 MG CAP PO SCH (21:05)
[2022-01-13] MEDS: Atorvastatin Calcium 40 MG TAB PO SCH (21:05)
[2022-01-14] MEDS ORDERED: Lorazepam 1 MG TAB PO PRN (01:14)
[2022-01-14] MEDS ORDERED: Lorazepam 2 MG/ML VIAL IM PRN (01:14)
[2022-01-14] MEDS ORDERED: Thiamine HCl 200 MG/2 ML VIAL SLOW IVP SCH (01:15)
[2022-01-14] MEDS: Lorazepam 1 MG TAB PO SCH ×3 (02:53→13:46)
[2022-01-14] MEDS: Albuterol 200 PUFF (6.7GM INHALER) INH SCH ×7 (04:00→23:04)
[2022-01-14 04:20] LABS: #Lymphocytes 0.7 thou/uL (1.20-3.40); #Monocytes 0.5 thou/uL (0.11-0.59); #Neutrophils 6.1 thou/uL (1.40-6.50); %Eosinophils 0.1 % (0.0-10.0); %Monocytes 6.9 % (0.0-10.0); Hemoglobin 10.9 g/dL (14.0-18.0); Mean Corpuscular HGB CONC 33.5 g/dL (32.0-36.0); Mean Corpuscular Hemoglobin 33.8 pg (27.0-31.0); Mean Platelet Volume 9.1 fL (7.4-10.4); Platelet Count 163 thou/uL (130-400); Red Blood Cell (RBC) Count 3.22 mill/uL (4.70-6.10); White Blood Cell (WBC) Count 7.2 thou/uL (4.8-10.8)
[2022-01-14 04:45] LABS: Magnesium 2.3 mg/dL (1.6-2.6)
[2022-01-14 04:47] LABS: Bilirubin, Direct 0.2 mg/dL (0.1-0.3)
[2022-01-14 05:01] LABS: Phosphorus Less than 1.0 mg/dL (2.3-4.7)
[2022-01-14] MEDS: HumaLOG 300 UNITS/3 ML VIAL SC PRN ×2 (06:15→18:16)
[2022-01-14 07:48] LABS: Amphetamine Not Detected (NotDetected); Barbiturates Screen Not Detected (NotDetected); Benzodiazepine Screen Not Detected (NotDetected); Cocaine Metabolite Screen Not Detected (NotDetected); Methadone Not Detected (NotDetected); Methamphetamine Not Detected (NotDetected); Opiate Screen Not Detected (NotDetected); Oxycodone Screen Not Detected (NotDetected); Phencyclidine (PCP) Not Detected (NotDetected); THC/Cannabinoid Screen Not Detected (NotDetected); Tricyclic Screen Not Detected (NotDetected)
[2022-01-14 08:59] LABS: #Lymphocytes 0.7 thou/uL (1.20-3.40); #Monocytes 0.5 thou/uL (0.11-0.59); #Neutrophils 6.2 thou/uL (1.40-6.50); %Basophils 0.2 % (0.0-1.0); %Lymphocytes 9.9 % (21.0-51.0); %Monocytes 6.4 % (0.0-10.0); %Neutrophils 83.5 % (42.0-75.0); Hemoglobin 11.3 g/dL (14.0-18.0); Mean Corpuscular HGB CONC 33.5 g/dL (32.0-36.0); Mean Corpuscular Hemoglobin 33.7 pg (27.0-31.0); Mean Platelet Volume 9.1 fL (7.4-10.4); Platelet Count 174 thou/uL (130-400); RBC Distribution Width 11.9 % (11.5-14.5); Red Blood Cell (RBC) Count 3.36 mill/uL (4.70-6.10); White Blood Cell (WBC) Count 7.5 thou/uL (4.8-10.8)
[2022-01-14 09:12] LABS: Vancomycin, Trough 14.2 ug/mL
[2022-01-14 09:14] LABS: ALT (SGPT) 24 U/L (8-55); AST (SGOT) 57 U/L (5-34); Albumin 3.3 g/dL (3.4-4.8); Alkaline Phosphatase 42 U/L (40-110); Anion Gap 13 mmol/L (10-20); BUN (Urea Nitrogen) 16 mg/dL (8.4-25.7); Bilirubin, Total 0.4 mg/dL (0.2-1.2); Calc. Creatinine Clearance 95 mL/min (70-130); Calcium 7.9 mg/dL (7.8-10.44); Carbon Dioxide 22 mmol/L (23-31); Chloride 108 mmol/L (98-107); Estimated GFR 88; Globulin 2.9 g/dL (2.4-3.5); Glucose 156 mg/dL (83-110); Potassium 3.3 mmol/L (3.5-5.1); Protein, Total 6.2 g/dL (5.8-8.1); Sodium 140 mmol/L (136-145)
[2022-01-14] MEDS: Cholecalciferol (Vitamin D3) 400 UNITS TAB PO SCH (09:28)
[2022-01-14] MEDS: Folic Acid 1 MG TAB PO SCH (09:29)
[2022-01-14] MEDS: Glimepiride 1 MG TAB PO SCH ×2 (09:29→23:03)
[2022-01-14] MEDS: Dexamethasone 4 mg/ml Vial SLOW IVP SCH (09:30)
[2022-01-14] MEDS: Multivit, Therapeutic 1 TAB PO SCH (09:30)
[2022-01-14] MEDS: Aspirin 325 MG TAB PO SCH (09:30)
[2022-01-14] MEDS: Ascorbic Acid 500 mg Chewable Tablet PO SCH (09:30)
[2022-01-14] MEDS: Clopidogrel Bisulfate 75 MG TAB PO SCH (09:30)
[2022-01-14] MEDS: Fluticasone Propionate Nasal Spray 16 gm Bottle NASAL SCH (09:31)
[2022-01-14] MEDS: REMDESIVIR 100 MG in Sodium Chloride 0.9% 250 ML 230 ML IV SCH (09:31)
[2022-01-14] MEDS: Enoxaparin Sodium 40 MG/0.4 ML SYRINGE SC SCH (09:31)
[2022-01-14] MEDS ORDERED: Potassium Chloride 20 MEQ TAB PO SCH (11:00)
[2022-01-14] MEDS: VANCOMYCIN 1.25 GM/250 ML BAG 1.25 GM in Premix Bag 1 BAG IVPB SCH ×2 (11:09→23:03)
[2022-01-14 11:32] LABS: Syphilis Antibody Nonreactive (Nonreactive); Syphilis Antibody Index 0.06 S/CO (<1.00 Non-Reactive)
[2022-01-14] MEDS: Sodium Chloride 0.9% 1,000 ML IV SCH (14:08)
[2022-01-14] MEDS: Cefepime 2 GM in Sodium Chloride 0.9% 100 ML IVPB SCH (14:09)
[2022-01-14] MEDS: Scopolamine 1.5 mg/72 hour Patch TD SCH (16:44)
[2022-01-14] MEDS ORDERED: ABIRATERONE ACETATE 500 MG PO SCH (21:00)
[2022-01-14] MEDS: Tamsulosin HCl 0.4 MG CAP PO SCH (23:03)
[2022-01-14] MEDS: Atorvastatin Calcium 40 MG TAB PO SCH (23:03)
[2022-01-14] MEDS ORDERED: OLANZapine 10 MG VIAL IM SCH (23:30)
[2022-01-14] MEDS ORDERED: Sterile Water 10 ML VIAL FS PRN (23:30)
[2022-01-15] MEDS: Cefepime 2 GM in Sodium Chloride 0.9% 100 ML IVPB SCH ×2 (00:05→14:12)
[2022-01-15] MEDS ORDERED: Lorazepam 1 MG TAB PO PRN (01:14)
[2022-01-15] MEDS: Albuterol 200 PUFF (6.7GM INHALER) INH SCH ×6 (03:00→22:22)
[2022-01-15 05:09] LABS: ALT (SGPT) 22 U/L (8-55); AST (SGOT) 44 U/L (5-34); Albumin 3.2 g/dL (3.4-4.8); Alkaline Phosphatase 39 U/L (40-110); Anion Gap 13 mmol/L (10-20); BUN (Urea Nitrogen) 19 mg/dL (8.4-25.7); Bilirubin, Total 0.5 mg/dL (0.2-1.2); Calc. Creatinine Clearance 98 mL/min (70-130); Calcium 7.8 mg/dL (7.8-10.44); Carbon Dioxide 21 mmol/L (23-31); Chloride 109 mmol/L (98-107); Estimated GFR 89; Glucose 210 mg/dL (83-110); Potassium 3.3 mmol/L (3.5-5.1); Protein, Total 6.2 g/dL (5.8-8.1); Sodium 140 mmol/L (136-145)
[2022-01-15] MEDS: HumaLOG 300 UNITS/3 ML VIAL SC PRN (06:18)
[2022-01-15] MEDS ORDERED: Glimepiride 1 MG TAB PO SCH (06:31)
[2022-01-15] MEDS ORDERED: Potassium Chloride 20 MEQ TAB PO SCH (08:00)
[2022-01-15] MEDS: Enoxaparin Sodium 40 MG/0.4 ML SYRINGE SC SCH (09:18)
[2022-01-15] MEDS: Glimepiride 4 MG TAB PO SCH ×2 (09:19→21:13)
[2022-01-15] MEDS: Aspirin 325 MG TAB PO SCH (09:19)
[2022-01-15] MEDS: Multivit, Therapeutic 1 TAB PO SCH (09:20)
[2022-01-15] MEDS: Ascorbic Acid 500 mg Chewable Tablet PO SCH (09:20)
[2022-01-15] MEDS: Folic Acid 1 MG TAB PO SCH (09:20)
[2022-01-15] MEDS: Cholecalciferol (Vitamin D3) 400 UNITS TAB PO SCH (09:21)
[2022-01-15] MEDS: Clopidogrel Bisulfate 75 MG TAB PO SCH (09:21)
[2022-01-15] MEDS: Fluticasone Propionate Nasal Spray 16 gm Bottle NASAL SCH (09:22)
[2022-01-15] MEDS: REMDESIVIR 100 MG in Sodium Chloride 0.9% 250 ML 230 ML IV SCH (09:22)
[2022-01-15] MEDS: VANCOMYCIN 1.25 GM/250 ML BAG 1.25 GM in Premix Bag 1 BAG IVPB SCH (11:06)
[2022-01-15] MEDS: Sodium Chloride 0.9% 1,000 ML IV SCH ×2 (11:07→22:27)
[2022-01-15] MEDS ORDERED: ALPRAZolam 0.5 MG TAB PO PRN (15:58)
[2022-01-15] MEDS: Atorvastatin Calcium 40 MG TAB PO SCH (21:13)
[2022-01-15] MEDS: risperiDONE 1 MG TAB PO SCH (21:13)
[2022-01-15] MEDS: Tamsulosin HCl 0.4 MG CAP PO SCH (21:14)
[2022-01-15] MEDS: Acetaminophen 325 MG TAB PO PRN (22:30)
[2022-01-16] MEDS ORDERED: Lorazepam 1 MG TAB PO PRN (01:14)
[2022-01-16] MEDS ORDERED: Lorazepam 0.5 MG TAB PO SCH (01:15)
[2022-01-16] MEDS: Albuterol 200 PUFF (6.7GM INHALER) INH SCH ×6 (03:16→22:37)
[2022-01-16 06:00] LABS: #Lymphocytes 1.2 thou/uL (1.20-3.40); #Monocytes 0.4 thou/uL (0.11-0.59); #Neutrophils 7.4 thou/uL (1.40-6.50); %Eosinophils 0.5 % (0.0-10.0); %Lymphocytes 13.1 % (21.0-51.0); %Monocytes 4.5 % (0.0-10.0); %Neutrophils 81.9 % (42.0-75.0); Hemoglobin 11.3 g/dL (14.0-18.0); Mean Corpuscular HGB CONC 33.3 g/dL (32.0-36.0); Mean Corpuscular Hemoglobin 33.3 pg (27.0-31.0); Mean Corpuscular Volume 99.9 fL (78.0-98.0); Mean Platelet Volume 8.6 fL (7.4-10.4); Platelet Count 183 thou/uL (130-400); RBC Distribution Width 12.2 % (11.5-14.5); White Blood Cell (WBC) Count 9.1 thou/uL (4.8-10.8)
[2022-01-16 06:18] LABS: Anion Gap 9 mmol/L (10-20); BUN (Urea Nitrogen) 17 mg/dL (8.4-25.7); Calc. Creatinine Clearance 99 mL/min (70-130); Carbon Dioxide 24 mmol/L (23-31); Chloride 110 mmol/L (98-107); Estimated GFR 90; Glucose 124 mg/dL (83-110); Potassium 3.2 mmol/L (3.5-5.1); Sodium 140 mmol/L (136-145)
[2022-01-16] MEDS ORDERED: Potassium Chloride 20 MEQ TAB PO SCH (08:00)
[2022-01-16] MEDS: Aspirin 325 MG TAB PO SCH (08:58)
[2022-01-16] MEDS: Cholecalciferol (Vitamin D3) 400 UNITS TAB PO SCH (08:58)
[2022-01-16] MEDS: Benztropine 1 MG TAB PO SCH (08:58)
[2022-01-16] MEDS: Ascorbic Acid 500 mg Chewable Tablet PO SCH (08:58)
[2022-01-16] MEDS: Multivit, Therapeutic 1 TAB PO SCH (08:58)
[2022-01-16] MEDS: Glimepiride 4 MG TAB PO SCH ×2 (08:58→20:33)
[2022-01-16] MEDS: Folic Acid 1 MG TAB PO SCH (08:59)
[2022-01-16] MEDS: Fluticasone Propionate Nasal Spray 16 gm Bottle NASAL SCH (08:59)
[2022-01-16] MEDS: Clopidogrel Bisulfate 75 MG TAB PO SCH (08:59)
[2022-01-16] MEDS: Enoxaparin Sodium 40 MG/0.4 ML SYRINGE SC SCH (08:59)
[2022-01-16 14:19] LABS: CKMB 9.1 ng/mL (0-6.6)
[2022-01-16] MEDS: HumaLOG 300 UNITS/3 ML VIAL SC PRN (17:24)
[2022-01-16] MEDS: Sodium Chloride 0.9% 1,000 ML IV SCH (17:25)
[2022-01-16] MEDS: Tamsulosin HCl 0.4 MG CAP PO SCH (20:33)
[2022-01-16] MEDS: Atorvastatin Calcium 40 MG TAB PO SCH (20:33)
[2022-01-16] MEDS: risperiDONE 1 MG TAB PO SCH (20:33)
[2022-01-17] MEDS ORDERED: Lorazepam 0.5 MG TAB PO PRN (01:14)
[2022-01-17] MEDS: Albuterol 200 PUFF (6.7GM INHALER) INH SCH ×6 (02:37→23:00)
[2022-01-17 06:46] LABS: Potassium 3.2 mmol/L (3.5-5.1)
[2022-01-17] MEDS: Ascorbic Acid 500 mg Chewable Tablet PO SCH (08:30)
[2022-01-17] MEDS: Enoxaparin Sodium 40 MG/0.4 ML SYRINGE SC SCH (08:30)
[2022-01-17] MEDS: Folic Acid 1 MG TAB PO SCH (08:30)
[2022-01-17] MEDS: Benztropine 1 MG TAB PO SCH (08:30)
[2022-01-17] MEDS: Aspirin 325 MG TAB PO SCH (08:30)
[2022-01-17] MEDS: Clopidogrel Bisulfate 75 MG TAB PO SCH (08:30)
[2022-01-17] MEDS: Glimepiride 4 MG TAB PO SCH (08:30)
[2022-01-17] MEDS: Fluticasone Propionate Nasal Spray 16 gm Bottle NASAL SCH (08:31)
[2022-01-17] MEDS: Cholecalciferol (Vitamin D3) 400 UNITS TAB PO SCH (08:33)
[2022-01-17] MEDS: Multivit, Therapeutic 1 TAB PO SCH (08:33)
[2022-01-17] MEDS: Thiamine 100 MG TAB PO SCH (08:33)
[2022-01-17] MEDS ORDERED: Potassium Chloride 20 MEQ TAB PO SCH (08:45)
[2022-01-17] MEDS ORDERED: Fleet Enema 133 ML BOT PR SCH (19:15)
[2022-01-17] MEDS: risperiDONE 1 MG TAB PO SCH (21:06)
[2022-01-17] MEDS: Tamsulosin HCl 0.4 MG CAP PO SCH (21:06)
[2022-01-17] MEDS: Atorvastatin Calcium 40 MG TAB PO SCH (21:07)
[2022-01-17] MEDS: Sodium Chloride 0.9% 1,000 ML IV SCH (21:35)
[2022-01-18] MEDS: Albuterol 200 PUFF (6.7GM INHALER) INH SCH ×6 (02:12→21:46)
[2022-01-18] MEDS: Sodium Chloride 0.9% 1,000 ML IV SCH (04:56)
[2022-01-18 06:25] LABS: #Eosinphils 0.3 thou/uL (0.0-0.7); #Lymphocytes 1.1 thou/uL (1.20-3.40); #Monocytes 0.5 thou/uL (0.11-0.59); #Neutrophils 4.9 thou/uL (1.40-6.50); %Basophils 0.7 % (0.0-1.0); %Eosinophils 4.2 % (0.0-10.0); %Lymphocytes 16.2 % (21.0-51.0); %Monocytes 7.8 % (0.0-10.0); Hemoglobin 11.3 g/dL (14.0-18.0); Mean Corpuscular HGB CONC 32.4 g/dL (32.0-36.0); Mean Corpuscular Hemoglobin 32.9 pg (27.0-31.0); Mean Platelet Volume 8.7 fL (7.4-10.4); Platelet Count 189 thou/uL (130-400); RBC Distribution Width 12.5 % (11.5-14.5); Red Blood Cell (RBC) Count 3.43 mill/uL (4.70-6.10); White Blood Cell (WBC) Count 6.9 thou/uL (4.8-10.8)
[2022-01-18 06:46] LABS: Anion Gap 13 mmol/L (10-20); BUN (Urea Nitrogen) 8 mg/dL (8.4-25.7); Calc. Creatinine Clearance 115 mL/min (70-130); Calcium 7.8 mg/dL (7.8-10.44); Carbon Dioxide 21 mmol/L (23-31); Chloride 110 mmol/L (98-107); Estimated GFR 94; Glucose 87 mg/dL (83-110); Potassium 3.6 mmol/L (3.5-5.1); Sodium 140 mmol/L (136-145)
[2022-01-18] MEDS: metFORMIN 500 MG TAB PO SCH ×2 (08:21→18:22)
[2022-01-18] MEDS: Ascorbic Acid 500 mg Chewable Tablet PO SCH (08:21)
[2022-01-18] MEDS: Thiamine 100 MG TAB PO SCH (08:21)
[2022-01-18] MEDS: Folic Acid 1 MG TAB PO SCH (08:21)
[2022-01-18] MEDS: Aspirin 325 MG TAB PO SCH (08:21)
[2022-01-18] MEDS: Multivit, Therapeutic 1 TAB PO SCH (08:22)
[2022-01-18] MEDS: Benztropine 1 MG TAB PO SCH (08:22)
[2022-01-18] MEDS: Clopidogrel Bisulfate 75 MG TAB PO SCH (08:22)
[2022-01-18] MEDS: Cholecalciferol (Vitamin D3) 400 UNITS TAB PO SCH (08:22)
[2022-01-18] MEDS: Enoxaparin Sodium 40 MG/0.4 ML SYRINGE SC SCH (08:22)
[2022-01-18] MEDS: Fluticasone Propionate Nasal Spray 16 gm Bottle NASAL SCH (08:23)
[2022-01-18] MEDS: Tamsulosin HCl 0.4 MG CAP PO SCH (21:46)
[2022-01-18] MEDS: risperiDONE 1 MG TAB PO SCH (21:46)
[2022-01-18] MEDS: Atorvastatin Calcium 40 MG TAB PO SCH (21:46)
[2022-01-19] MEDS: Albuterol 200 PUFF (6.7GM INHALER) INH SCH ×6 (03:24→22:15)
[2022-01-19] MEDS: Benztropine 1 MG TAB PO SCH (08:31)
[2022-01-19] MEDS: Clopidogrel Bisulfate 75 MG TAB PO SCH (08:32)
[2022-01-19] MEDS: Ascorbic Acid 500 mg Chewable Tablet PO SCH (08:32)
[2022-01-19] MEDS: Cholecalciferol (Vitamin D3) 400 UNITS TAB PO SCH (08:32)
[2022-01-19] MEDS: metFORMIN 500 MG TAB PO SCH ×2 (08:32→17:16)
[2022-01-19] MEDS: Thiamine 100 MG TAB PO SCH (08:32)
[2022-01-19] MEDS: Enoxaparin Sodium 40 MG/0.4 ML SYRINGE SC SCH (08:32)
[2022-01-19] MEDS: Multivit, Therapeutic 1 TAB PO SCH (08:32)
[2022-01-19] MEDS: Fluticasone Propionate Nasal Spray 16 gm Bottle NASAL SCH (08:33)
[2022-01-19] MEDS: Aspirin 325 MG TAB PO SCH (08:33)
[2022-01-19] MEDS: Folic Acid 1 MG TAB PO SCH (08:33)
[2022-01-19] MEDS: Sodium Chloride 0.9% 1,000 ML IV SCH (13:58)
[2022-01-19] MEDS: GUAIFENESIN SF SOLN 200 MG/10 ML UDCUP PO SCH ×2 (13:59→19:42)
[2022-01-19] MEDS: Acetaminophen 325 MG TAB PO PRN (15:36)
[2022-01-19] MEDS: Tamsulosin HCl 0.4 MG CAP PO SCH (19:42)
[2022-01-19] MEDS: Atorvastatin Calcium 40 MG TAB PO SCH (19:42)
[2022-01-19] MEDS: risperiDONE 1 MG TAB PO SCH (19:42)
[2022-01-20] MEDS: Albuterol 200 PUFF (6.7GM INHALER) INH SCH ×6 (03:51→22:31)
[2022-01-20] MEDS: Clopidogrel Bisulfate 75 MG TAB PO SCH (09:08)
[2022-01-20] MEDS: Thiamine 100 MG TAB PO SCH (09:08)
[2022-01-20] MEDS: GUAIFENESIN SF SOLN 200 MG/10 ML UDCUP PO SCH ×3 (09:08→22:14)
[2022-01-20] MEDS: Cholecalciferol (Vitamin D3) 400 UNITS TAB PO SCH (09:08)
[2022-01-20] MEDS: Multivit, Therapeutic 1 TAB PO SCH (09:08)
[2022-01-20] MEDS: metFORMIN 500 MG TAB PO SCH ×2 (09:08→17:32)
[2022-01-20] MEDS: Folic Acid 1 MG TAB PO SCH (09:09)
[2022-01-20] MEDS: Aspirin 325 MG TAB PO SCH (09:09)
[2022-01-20] MEDS: Ascorbic Acid 500 mg Chewable Tablet PO SCH (09:09)
[2022-01-20] MEDS: Fluticasone Propionate Nasal Spray 16 gm Bottle NASAL SCH (09:10)
[2022-01-20] MEDS: Enoxaparin Sodium 40 MG/0.4 ML SYRINGE SC SCH (09:10)
[2022-01-20] MEDS: Benztropine 1 MG TAB PO SCH (09:10)
[2022-01-20] MEDS: Sodium Chloride 0.9% 1,000 ML IV SCH (09:11)
[2022-01-20] MEDS: Atorvastatin Calcium 40 MG TAB PO SCH (22:14)
[2022-01-20] MEDS: Tamsulosin HCl 0.4 MG CAP PO SCH (22:15)
[2022-01-20] MEDS: risperiDONE 1 MG TAB PO SCH (22:15)
[2022-01-21] MEDS: Albuterol 200 PUFF (6.7GM INHALER) INH SCH ×4 (04:06→13:59)
[2022-01-21] MEDS: Sodium Chloride 0.9% 1,000 ML IV SCH (06:26)
[2022-01-21] MEDS: Aspirin 325 MG TAB PO SCH (09:07)
[2022-01-21] MEDS: Multivit, Therapeutic 1 TAB PO SCH (09:07)
[2022-01-21] MEDS: metFORMIN 500 MG TAB PO SCH (09:07)
[2022-01-21] MEDS: Benztropine 1 MG TAB PO SCH (09:07)
[2022-01-21] MEDS: Clopidogrel Bisulfate 75 MG TAB PO SCH (09:07)
[2022-01-21] MEDS: Folic Acid 1 MG TAB PO SCH (09:07)
[2022-01-21] MEDS: Ascorbic Acid 500 mg Chewable Tablet PO SCH (09:07)
[2022-01-21] MEDS: GUAIFENESIN SF SOLN 200 MG/10 ML UDCUP PO SCH ×2 (09:07→15:19)
[2022-01-21] MEDS: Thiamine 100 MG TAB PO SCH (09:08)
[2022-01-21] MEDS: Enoxaparin Sodium 40 MG/0.4 ML SYRINGE SC SCH (09:08)
[2022-01-21] MEDS: Cholecalciferol (Vitamin D3) 400 UNITS TAB PO SCH (09:08)
[2022-01-21] MEDS: Fluticasone Propionate Nasal Spray 16 gm Bottle NASAL SCH (09:08)
[2022-01-21 09:17] VITALS: BP 138/81; TEMP 98.7
[2022-01-21] MEDS ORDERED: Scopolamine 1.5 mg/72 hour Patch TD SCH (12:00)
[2022-01-21] MEDS: Acetaminophen 325 MG TAB PO PRN (13:23)
== END 2022-01-21 15:57 | DRG 871 ==
LOC: ERS 18:59 → ERHOLD 01-11 00:38 → IMCU/EMU 01-11 07:30 → 2NO 01-13 15:36 → T4-B 01-15 18:33
PROVIDERS: ADMIT Internal Medicine Geriatric Medicine; ATTEND Internal Medicine Geriatric Medicine
PROC: 3E03329 Introduction of Other Anti-infective into Peripheral Vein, Percutaneous Approach (ICD-10-PCS; principal; 2022-01-11)
PROC: 8E0ZXY6 Isolation (ICD-10-PCS; 2022-01-11)
PROC: XW033E5 Introduction of Remdesivir Anti-infective into Peripheral Vein, Percutaneous Approach, New Technology Group 5 (ICD-10-PCS; 2022-01-11)
DX: A41.59 Other Gram-negative sepsis (principal); I21.4 Non-ST elevation (NSTEMI) myocardial infarction; J96.01 Acute respiratory failure with hypoxia; G93.41 Metabolic encephalopathy; U07.1 COVID-19; J12.82 Pneumonia due to coronavirus disease 2019; N39.0 Urinary tract infection, site not specified; I50.42 Chronic combined systolic (congestive) and diastolic (congestive) heart failure; C79.51 Secondary malignant neoplasm of bone; E87.2 Acidosis; I25.110 Atherosclerotic heart disease of native coronary artery with unstable angina pectoris; A41.89 Other specified sepsis; E11.9 Type 2 diabetes mellitus without complications; I48.0 Paroxysmal atrial fibrillation; I11.0 Hypertensive heart disease with heart failure; I25.10 Atherosclerotic heart disease of native coronary artery without angina pectoris; D64.9 Anemia, unspecified; C61 Malignant neoplasm of prostate; F41.1 Generalized anxiety disorder; E55.9 Vitamin D deficiency, unspecified; E87.6 Hypokalemia; K59.00 Constipation, unspecified; Z74.01 Bed confinement status; Z95.0 Presence of cardiac pacemaker; Z88.1 Allergy status to other antibiotic agents; Z88.0 Allergy status to penicillin; Z79.899 Other long term (current) drug therapy
CPT/HCPCS: 36415; 36416; 36600; 71045; 71275; 74177; 80048; 80053; 80202; 80306; 81003; 81015; 82248; 82553; 82607; 82805; 83605; 83690; 83735; 83880; 84100; 84132; 84484; 85025; 85027; 85379; 85730; 86140; 86780; 87040; 87077; 87086; 87186; 93005; 93010; 94760; 96374; 96375; J0248; J0692; J1100; J1630; J1644; J1650; J1815; J1940; J2358; J3370; J3411; J3475; J3480; J3490; J7050; Q9967

== ENCOUNTER 2022-02-12 19:23 | Inpatient (IN) | payer MEDICARE ==
[2022-02-12 19:58] LABS: #Basophils 0.1 thou/uL (0.0-0.2); #Eosinphils 0.3 thou/uL (0.0-0.7); #Lymphocytes 1.4 thou/uL (1.20-3.40); #Monocytes 1.1 thou/uL (0.11-0.59); #Neutrophils 8.7 thou/uL (1.40-6.50); %Basophils 0.6 % (0.0-1.0); %Eosinophils 2.8 % (0.0-10.0); %Lymphocytes 11.8 % (21.0-51.0); %Monocytes 9.1 % (0.0-10.0); %Neutrophils 75.7 % (42.0-75.0); Hemoglobin 12.9 g/dL (14.0-18.0); Mean Corpuscular HGB CONC 33.4 g/dL (32.0-36.0); Mean Corpuscular Hemoglobin 32.4 pg (27.0-31.0); Mean Corpuscular Volume 96.8 fL (78.0-98.0); Mean Platelet Volume 8.2 fL (7.4-10.4); Platelet Count 325 thou/uL (130-400); Red Blood Cell (RBC) Count 3.97 mill/uL (4.70-6.10); White Blood Cell (WBC) Count 11.5 thou/uL (4.8-10.8)
[2022-02-12 20:16] LABS: INR-International Normal Ratio 1.1; PTT 34.3 sec (22.9-36.1); Prothrombin Time 14.7 sec (12.0-14.7)
[2022-02-12 20:18] LABS: ALT (SGPT) 27 U/L (8-55); AST (SGOT) 50 U/L (5-34); Albumin 3.4 g/dL (3.4-4.8); Alkaline Phosphatase 93 U/L (40-110); Anion Gap 24 mmol/L (10-20); BUN (Urea Nitrogen) 18 mg/dL (8.4-25.7); Bilirubin, Total 1.3 mg/dL (0.2-1.2); Calc. Creatinine Clearance 0 mL/min (70-130); Calcium 9.2 mg/dL (7.8-10.44); Carbon Dioxide 15 mmol/L (23-31); Chloride 103 mmol/L (98-107); Estimated GFR 67; Globulin 4.5 g/dL (2.4-3.5); Glucose 144 mg/dL (83-110); Protein, Total 7.9 g/dL (5.8-8.1); Sodium 139 mmol/L (136-145)
[2022-02-12 20:19] LABS: Bacteria/HPF 4+ HPF (None Seen); Bilirubin 1+ (Negative); Blood, Urine 3+ (Negative); Clarity Extra Turbid (Clear); Glucose, Urine (Dipstick) 500 mg/dL (Negative); Ketone, Urine Greater than 150 mg/dL (Negative); Leukocyte 500 Leu/uL (Negative); Nitrite Negative (Negative); Protein, Urine (Dipstick) 100 mg/dL (Neg-Trace); RBC/HPF Greater than 50 HPF (0-3); Specific Gravity, Urine 1.021 (1.002-1.036); Squamous Epithelial 0-3 HPF (0-3); WBC/HPF Greater than 50 HPF (0-3); Yeast-Budding 2+ HPF (None Seen)
[2022-02-12 20:22] LABS: Potassium 2.9 mmol/L (3.5-5.1)
[2022-02-12] MEDS ORDERED: cefTRIAXone\\ROCEPHIN 2 GM VIAL ONE (20:46)
[2022-02-12] MEDS ORDERED: Vancomycin 1.5 GRAM/300 ML BAG 1.5 GM in Premix Bag 1 BAG IVPB SCH (21:30)
[2022-02-12 22:16] LABS: Analyzer IN Cardio ER; Base Excess -9.4 mEq/L (-2.0 to +3.0); Calcium, Ionized (venous) 1.11 mmol/L (1.16-1.32); Chloride (VBG) 104 mmol/L (98-106); Hemoglobin (Hb) 14.2 g/dL (12.6-17.4); Potassium (VBG) 2.96 mmol/L (3.70-5.30); Sodium 138.3 mmol/L (133-146)
[2022-02-12 22:22] LABS: Actual Bicarbonate (HCO3v) 13 mEq/L (22-28)
[2022-02-12] MEDS ORDERED: NS 0.9% w/ 40 MEQ KCL 1,000 ML IV SCH (23:30)
[2022-02-12] MEDS ORDERED: Acetaminophen 325 MG TAB PO PRN (23:45)
[2022-02-13] MEDS ORDERED: ALPRAZolam 0.25 MG TAB PO PRN (00:35)
[2022-02-13] MEDS ORDERED: Nitroglycerin 0.4 MG TAB (25 Tab Bottle) SL PRN (00:35)
[2022-02-13 01:18] LABS: Anion Gap 23 mmol/L (10-20); BUN (Urea Nitrogen) 17 mg/dL (8.4-25.7); Calc. Creatinine Clearance 0 mL/min (70-130); Carbon Dioxide 12 mmol/L (23-31); Chloride 110 mmol/L (98-107); Sodium 142 mmol/L (136-145)
[2022-02-13 01:19] LABS: Calcium 8.3 mg/dL (7.8-10.44); Estimated GFR 84; Glucose 122 mg/dL (83-110)
[2022-02-13] MEDS ORDERED: Dextrose 50% Abboject 50 ML SYRINGE SLOW IVP PRN (01:21)
[2022-02-13] MEDS ORDERED: Dextrose 5% in Water 1,000 ML IV PRN (01:21)
[2022-02-13 01:27] VITALS: BMI 22.8
[2022-02-13] MEDS ORDERED: Potassium Chloride 20 MEQ in Premix Bag 1 BAG IVPB SCH ×3 (01:30→13:30)
[2022-02-13] MEDS: Lactated Ringer's 1,000 ML IV SCH ×2 (02:20→13:40)
[2022-02-13] MEDS: Albuterol 200 PUFF (6.7GM INHALER) INH SCH ×6 (04:31→22:48)
[2022-02-13 05:07] LABS: #Eosinphils 0.3 thou/uL (0.0-0.7); #Lymphocytes 1.3 thou/uL (1.20-3.40); #Monocytes 1.1 thou/uL (0.11-0.59); #Neutrophils 7.6 thou/uL (1.40-6.50); %Basophils 0.3 % (0.0-1.0); %Eosinophils 2.9 % (0.0-10.0); %Lymphocytes 12.4 % (21.0-51.0); %Monocytes 10.9 % (0.0-10.0); %Neutrophils 73.5 % (42.0-75.0); Hemoglobin 11.8 g/dL (14.0-18.0); Mean Corpuscular HGB CONC 33.1 g/dL (32.0-36.0); Mean Corpuscular Hemoglobin 32.1 pg (27.0-31.0); Mean Corpuscular Volume 96.9 fL (78.0-98.0); Mean Platelet Volume 8.4 fL (7.4-10.4); Platelet Count 269 thou/uL (130-400); Red Blood Cell (RBC) Count 3.69 mill/uL (4.70-6.10); White Blood Cell (WBC) Count 10.4 thou/uL (4.8-10.8)
[2022-02-13 05:41] LABS: ALT (SGPT) 25 U/L (8-55); AST (SGOT) 44 U/L (5-34); Albumin 2.9 g/dL (3.4-4.8); Alkaline Phosphatase 80 U/L (40-110); Anion Gap 23 mmol/L (10-20); BUN (Urea Nitrogen) 15 mg/dL (8.4-25.7); Bilirubin, Total 0.9 mg/dL (0.2-1.2); Calc. Creatinine Clearance 66 mL/min (70-130); Calcium 8.4 mg/dL (7.8-10.44); Carbon Dioxide 13 mmol/L (23-31); Chloride 110 mmol/L (98-107); Estimated GFR 79; Globulin 3.9 g/dL (2.4-3.5); Glucose 127 mg/dL (83-110); Protein, Total 6.8 g/dL (5.8-8.1); Sodium 143 mmol/L (136-145)
[2022-02-13] MEDS ORDERED: Cefepime 2 GM in Sodium Chloride 0.9% 100 ML IVPB SCH (06:00)
[2022-02-13] MEDS ORDERED: Electrolyte Replacement Protocol 1 EACH FS SCH (08:45)
[2022-02-13] MEDS ORDERED: Electrolyte Replacement Protocol FS PRN (08:45)
[2022-02-13] MEDS ORDERED: Fluconazole In NaCl,Iso-Osm 200 MG in Premix Bag 1 BAG IVPB SCH (09:00)
[2022-02-13] MEDS ORDERED: Vancomycin 1 GM in Premix Bag 1 BAG IVPB SCH (09:00)
[2022-02-13] MEDS: Clopidogrel Bisulfate 75 MG TAB PO SCH (09:21)
[2022-02-13] MEDS: Enoxaparin Sodium 40 MG/0.4 ML SYRINGE SC SCH (09:21)
[2022-02-13] MEDS: Cholecalciferol (Vitamin D3) 400 UNITS TAB PO SCH (09:21)
[2022-02-13] MEDS: Aspirin Chewable 81 MG TAB PO SCH (09:21)
[2022-02-13] MEDS: Benztropine 1 MG TAB PO SCH (09:21)
[2022-02-13] MEDS: Folic Acid 1 MG TAB PO SCH (09:22)
[2022-02-13] MEDS: Cyanocobalamin (Vitamin B-12) 1,000 MCG TAB PO SCH (09:22)
[2022-02-13] MEDS: Fluticasone Propionate Nasal Spray 16 gm Bottle NASAL SCH (09:22)
[2022-02-13] MEDS ORDERED: cefTRIAXone\\ROCEPHIN 1 GM in Sodium Chloride 0.9% 100 ML IVPB SCH ×2 (10:00→21:00)
[2022-02-13 13:08] LABS: Potassium 2.9 mmol/L (3.5-5.1)
[2022-02-13] MEDS ORDERED: Tamsulosin HCl 0.4 MG CAP PO SCH (21:00)
[2022-02-13] MEDS ORDERED: Atorvastatin Calcium 40 MG TAB PO SCH (21:00)
[2022-02-14 00:22] LABS: Actual Bicarbonate (HCO3a) 15.1 mEq/L (22-28); Analyzer IN Cardio OR; Base Excess (BEa) -8.5 mEq/L (-2.0 to +3.0); Calcium, Ionized (arterial) 1.19 mmol/L (1.12-1.30); Carboxyhemoglobin (COHb) 0.6 gm% (0.0-3.0); Hemoglobin (Hb) 11.7 g/dL (14.0-18.0); O2 Tension (PaO2), arterial 67.7 mmHg (> 60.0); Potassium - ABG Lab 3.21 mmol/L (3.70-5.30); pH, Arterial 7.38 (7.35-7.45)
[2022-02-14 00:27] LABS: Puncture Site RRA
[2022-02-14 00:28] LABS: Anion Gap 20 mmol/L (10-20); BUN (Urea Nitrogen) 15 mg/dL (8.4-25.7); Calc. Creatinine Clearance 61 mL/min (70-130); Calcium 8.7 mg/dL (7.8-10.44); Carbon Dioxide 12 mmol/L (23-31); Chloride 115 mmol/L (98-107); Estimated GFR 72; Glucose 132 mg/dL (83-110); Magnesium 1.6 mg/dL (1.6-2.6); Potassium 3.3 mmol/L (3.5-5.1); Sodium 144 mmol/L (136-145)
[2022-02-14] MEDS: Potassium Chloride 20 MEQ in Premix Bag 1 BAG IVPB SCH ×2 (01:23→03:28)
[2022-02-14] MEDS ORDERED: Magnesium Sulfate In Water 4 GM in Premix Bag 1 BAG IVPB SCH (01:30)
[2022-02-14] MEDS: Lactated Ringer's 1,000 ML IV SCH (02:12)
[2022-02-14] MEDS: Albuterol 200 PUFF (6.7GM INHALER) INH SCH ×3 (04:22→10:28)
[2022-02-14 04:36] LABS: #Basophils 0.1 thou/uL (0.0-0.2); #Eosinphils 0.3 thou/uL (0.0-0.7); #Lymphocytes 1.3 thou/uL (1.20-3.40); #Monocytes 1.1 thou/uL (0.11-0.59); #Neutrophils 8.1 thou/uL (1.40-6.50); %Basophils 0.5 % (0.0-1.0); %Eosinophils 3.1 % (0.0-10.0); %Lymphocytes 12.4 % (21.0-51.0); %Monocytes 9.7 % (0.0-10.0); %Neutrophils 74.4 % (42.0-75.0); Hemoglobin 11.3 g/dL (14.0-18.0); Mean Corpuscular HGB CONC 34.5 g/dL (32.0-36.0); Mean Corpuscular Hemoglobin 33.3 pg (27.0-31.0); Mean Corpuscular Volume 96.6 fL (78.0-98.0); Mean Platelet Volume 8.7 fL (7.4-10.4); Platelet Count 250 thou/uL (130-400); Red Blood Cell (RBC) Count 3.38 mill/uL (4.70-6.10); White Blood Cell (WBC) Count 10.8 thou/uL (4.8-10.8)
[2022-02-14] MEDS ORDERED: Sodium Bicarbonate 150 MEQ in Dextrose 5% in Water 1,000 ML IV SCH (04:45)
[2022-02-14 05:06] LABS: ALT (SGPT) 31 U/L (8-55); AST (SGOT) 49 U/L (5-34); Albumin 2.9 g/dL (3.4-4.8); Alkaline Phosphatase 76 U/L (40-110); Anion Gap 21 mmol/L (10-20); BUN (Urea Nitrogen) 17 mg/dL (8.4-25.7); Calc. Creatinine Clearance 53 mL/min (70-130); Calcium 8.8 mg/dL (7.8-10.44); Carbon Dioxide 12 mmol/L (23-31); Chloride 115 mmol/L (98-107); Estimated GFR 61; Globulin 3.8 g/dL (2.4-3.5); Glucose 131 mg/dL (83-110); Magnesium 2.2 mg/dL (1.6-2.6); Potassium 3.7 mmol/L (3.5-5.1); Protein, Total 6.7 g/dL (5.8-8.1); Sodium 144 mmol/L (136-145)
[2022-02-14 05:07] LABS: Lactic Acid 1.6 mmol/L (0.5-2.2)
[2022-02-14] MEDS: Benztropine 1 MG TAB PO SCH (11:14)
[2022-02-14] MEDS: Aspirin Chewable 81 MG TAB PO SCH (11:14)
[2022-02-14] MEDS: Cholecalciferol (Vitamin D3) 400 UNITS TAB PO SCH (11:14)
[2022-02-14] MEDS: Clopidogrel Bisulfate 75 MG TAB PO SCH (11:14)
[2022-02-14] MEDS: Enoxaparin Sodium 40 MG/0.4 ML SYRINGE SC SCH (11:15)
[2022-02-14] MEDS: Cyanocobalamin (Vitamin B-12) 1,000 MCG TAB PO SCH (11:15)
[2022-02-14] MEDS: Folic Acid 1 MG TAB PO SCH (11:15)
[2022-02-14] MEDS: Fluticasone Propionate Nasal Spray 16 gm Bottle NASAL SCH (11:15)
[2022-02-14 12:31] VITALS: BP 106/51; TEMP 100.6
== END 2022-02-14 12:31 | disposition hospice, inpatient (51) | DRG 698 ==
LOC: ERS 19:23 → OBSVTOIN 23:23 → 2NO 23:23
PROVIDERS: ADMIT Internal Medicine; ATTEND Internal Medicine
DX: T83.511A Infection and inflammatory reaction due to indwelling urethral catheter, initial encounter (principal); A41.9 Sepsis, unspecified organism; R65.20 Severe sepsis without septic shock; Z51.5 Encounter for palliative care; Z66 Do not resuscitate; Z20.822 Contact with and (suspected) exposure to COVID-19; E43 Unspecified severe protein-calorie malnutrition; G93.41 Metabolic encephalopathy; F01.51 Vascular dementia, unspecified severity, with behavioral disturbance; I50.22 Chronic systolic (congestive) heart failure; R64 Cachexia; N39.0 Urinary tract infection, site not specified; R13.10 Dysphagia, unspecified; E11.9 Type 2 diabetes mellitus without complications; E87.6 Hypokalemia; I11.0 Hypertensive heart disease with heart failure; I25.10 Atherosclerotic heart disease of native coronary artery without angina pectoris; F41.9 Anxiety disorder, unspecified; N40.0 Benign prostatic hyperplasia without lower urinary tract symptoms; C61 Malignant neoplasm of prostate; Y84.6 Urinary catheterization as the cause of abnormal reaction of the patient, or of later complication, without mention of misadventure at the time of the procedure; Z86.16 Personal history of COVID-19; Z88.0 Allergy status to penicillin; Z79.899 Other long term (current) drug therapy; Z79.82 Long term (current) use of aspirin; Z87.440 Personal history of urinary (tract) infections; Z85.820 Personal history of malignant melanoma of skin; Z74.01 Bed confinement status; Z68.22 Body mass index [BMI] 22.0-22.9, adult; I25.2 Old myocardial infarction; Z95.1 Presence of aortocoronary bypass graft
CPT/HCPCS: 36415; 36416; 36600; 70450; 71045; 80053; 81003; 81015; 82010; 82805; 83605; 83735; 85025; 85610; 85730; 87040; 87077; 87086; 87186; 93005; 93010; 96365; 96375; 97139; J0692; J0696; J1450; J1650; J3370; J3475; J3480; J3490; J7070; J7120; U0003; U0005

== ENCOUNTER 2022-02-14 13:06 | Inpatient (IN) | payer OTHER ==
[2022-02-14] MEDS ORDERED: Morphine 2 MG/ML VIAL SLOW IVP PRN (14:35)
[2022-02-14] MEDS ORDERED: Diazepam 10 MG/2 ML SYRINGE IVP PRN (14:37)
[2022-02-14] MEDS ORDERED: Bisacodyl 10 MG SUPP PR PRN (14:38)
[2022-02-14] MEDS ORDERED: Ondansetron PF 4 MG/2 ML Vial IVP PRN (14:45)
[2022-02-14] MEDS ORDERED: diphenhydrAMINE 50 MG/ML VIAL IVP PRN (14:45)
[2022-02-14] MEDS ORDERED: Haloperidol Lactate 5 MG/ML VIAL SLOW IVP PRN (14:45)
[2022-02-14] MEDS ORDERED: Acetaminophen 650 MG Suppository PR PRN (14:45)
[2022-02-14] MEDS ORDERED: Promethazine HCl 25 MG SUPP PR PRN (14:45)
[2022-02-14] MEDS ORDERED: Scopolamine 1.5 mg/72 hour Patch TOP PRN (14:45)
[2022-02-14 15:23] VITALS: BP 62/46; TEMP 99
== END 2022-02-14 15:50 | disposition expired | DRG 951 ==
LOC: 2NO 13:06
PROVIDERS: ADMIT Family Medicine; ATTEND Family Medicine
DX: Z51.5 Encounter for palliative care (principal); Z66 Do not resuscitate; A41.9 Sepsis, unspecified organism; R65.20 Severe sepsis without septic shock; G93.41 Metabolic encephalopathy; I21.9 Acute myocardial infarction, unspecified; I50.22 Chronic systolic (congestive) heart failure; N39.0 Urinary tract infection, site not specified; R64 Cachexia; I25.10 Atherosclerotic heart disease of native coronary artery without angina pectoris; I11.0 Hypertensive heart disease with heart failure; F17.210 Nicotine dependence, cigarettes, uncomplicated; F03.90 Unspecified dementia, unspecified severity, without behavioral disturbance, psychotic disturbance, mood disturbance, and anxiety; N40.0 Benign prostatic hyperplasia without lower urinary tract symptoms; E11.9 Type 2 diabetes mellitus without complications; E87.6 Hypokalemia; R13.10 Dysphagia, unspecified; C61 Malignant neoplasm of prostate; Z86.16 Personal history of COVID-19; Z88.0 Allergy status to penicillin; Z79.899 Other long term (current) drug therapy; Z79.82 Long term (current) use of aspirin; Z85.820 Personal history of malignant melanoma of skin; Z95.1 Presence of aortocoronary bypass graft; Z98.890 Other specified postprocedural states
CPT/HCPCS: J2270